=== PATIENT | female | born 1950 | race Caucasian/White ===

== ENCOUNTER 2017-05-23 18:30 | Emergency (ER) | payer MEDICARE, MEDICAID ==
[~2017-05-23] VITALS: Ht 157.5 cm; Wt 114.7 kg
[2017-05-23 18:53] VITALS: BP 149/90
[2017-05-23] MEDS ORDERED: OFLO5DRO EACHEYE (19:57)
== END 2017-05-23 20:02 | disposition home or self-care (01) ==
LOC: ER 18:31
DX: L98.9 Disorder of the skin and subcutaneous tissue, unspecified (principal); Z88.5 Allergy status to narcotic agent; Z88.1 Allergy status to other antibiotic agents
CPT/HCPCS: 99283

== ENCOUNTER 2017-05-24 16:18 | Emergency (ER) | payer MEDICARE, MEDICAID ==
[~2017-05-24] VITALS: Ht 149.9 cm; Wt 120.0 kg
[~2017-05-24 16:18] MED LIST: OFLO5DRO EACHEYE
[2017-05-24 16:28] VITALS: BP 134/75
== END 2017-05-24 16:53 | disposition home or self-care (01) ==
LOC: ER 16:19
DX: R21 Rash and other nonspecific skin eruption (principal); Z88.5 Allergy status to narcotic agent
CPT/HCPCS: 99281

== ENCOUNTER 2017-08-13 10:15 | Inpatient (IN) | payer MEDICARE, MEDICAID ==
[~2017-08-13] VITALS: Ht 157.5 cm; Wt 114.0 kg
[2017-08-13 10:56] LABS: BASOPHILS % (AUTO) 0.6 % (0-1); EOSINOPHILS # (AUTO) 0.2 X10'3 (0-0.9); HEMATOCRIT 37.1 % (35.0-45.0); HEMOGLOBIN 12.6 g/dl (12.0-16.0); LYMPHOCYTES # (AUTO) 1.1 X10'3 (1.1-4.8); LYMPHOCYTES % (AUTO) 26.5 % (21-51); MEAN CORPUSCULAR HEMOGLOBIN 29.8 PG (27.0-31.0); MEAN CORPUSCULAR VOLUME 87.8 FL (78-98); MONOCYTES # (AUTO) 0.3 X10'3 (0-0.9); NEUTROPHILS # (AUTO) 2.6 X10'3 (1.8-7.7); NEUTROPHILS % (AUTO) 60.9 % (42-75); PLATELET COUNT 180 X10'3 (140-440); RED BLOOD COUNT 4.22 X10'6 (4.20-5.60); WHITE BLOOD COUNT 4.3 X10'3 (4.5-11.0)
[2017-08-13 11:06] LABS: PARTIAL THROMBOPLASTIN TIME 25 SECONDS (22-32); PROTHROMBIN TIME 10.4 SECONDS (9.0-12.0)
[2017-08-13 11:10] LABS: ALANINE AMINOTRANSFERASE 25 U/L (12-78); ALBUMIN 3.3 G/DL (3.4-5.0); ALBUMIN/GLOBULIN RATIO 0.8 (1.1-1.5); ALKALINE PHOSPHATASE 119 IU/L (46-116); ANION GAP 7 (8-16); ASPARTATE AMINO TRANSFERASE 22 U/L (10-37); BILIRUBIN,TOTAL 0.3 MG/DL (0.1-1.0); BLOOD UREA NITROGEN 24 MG/DL (7-18); BUN/CREATININE RATIO 28.2 (6.6-38.0); CALCIUM 8.6 MG/DL (8.5-10.1); CHLORIDE 107 MMOL/L (99-107); CREATININE 0.85 MG/DL (0.40-0.90); GLUCOSE 102 MG/DL (70-104); POTASSIUM 3.9 MMOL/L (3.5-5.1); SODIUM 143 MMOL/L (135-145); TOTAL CARBON DIOXIDE 28.6 MMOL/L (24-32); TOTAL PROTEIN 7.2 G/DL (6.4-8.2); eGFR 67 ML/MIN
[2017-08-13 11:13] LABS: TROPONIN I < 0.04 NG/ML (0.0-0.05)
[2017-08-13] MEDS ORDERED: mag hydrox/Alum hydrox/simeth 30ml oral suspension PO PRN (11:55)
[2017-08-13] MEDS ORDERED: magnesium hydroxide 30ml (MOM) UD suspension PO PRN (11:55)
[2017-08-13] MEDS ORDERED: ondansetron/PF 4mg/2ml inj IV PRN (11:55)
[2017-08-13] MEDS ORDERED: acetaminophen 325mg tablet PO PRN (11:55)
[2017-08-13] MEDS: normal saline 1000ml 1,000 ML IV SCH ×2 (12:15→21:14)
[2017-08-13 12:18] LABS: CHOL/HDL RATIO 2.9 (0.00-4.99); CHOLESTEROL 159 MG/DL (0-200); HDL CHOLESTEROL 55 MG/DL (35-60); LDL CHOLESTEROL 89 MG/DL (50-100); TRIGLYCERIDES 64 MG/DL (20-135)
[2017-08-13 13:54] VITALS: BP 154/97
[2017-08-13 17:00] VITALS: BP 98/47
[2017-08-13] MEDS: heparin, porcine 5000 units/ml vial SQ SCH (19:42)
[2017-08-13] MEDS: acetaminophen 325mg tablet PO PRN (21:16)
[2017-08-13 22:00] VITALS: BP 113/57
[2017-08-13] MEDS ORDERED: ketorolac tromethamine 15mg/ml inj. IV ONE (22:35)
[2017-08-14 02:11] VITALS: BP 114/51
[2017-08-14] MEDS: acetaminophen 325mg tablet PO PRN (03:41)
[2017-08-14] MEDS: normal saline 1000ml 1,000 ML IV SCH (05:33)
[2017-08-14 05:52] LABS: BASOPHILS % (AUTO) 0.6 % (0-1); EOSINOPHILS # (AUTO) 0.2 X10'3 (0-0.9); EOSINOPHILS % (AUTO) 5.3 % (0-6); HEMOGLOBIN 10.7 g/dl (12.0-16.0); LYMPHOCYTES # (AUTO) 1.6 X10'3 (1.1-4.8); LYMPHOCYTES % (AUTO) 43.5 % (21-51); MEAN CORPUSCULAR HEMOGLOBIN 29.6 PG (27.0-31.0); MEAN CORPUSCULAR HGB CONC 33.4 % (33.0-36.5); MEAN CORPUSCULAR VOLUME 88.7 FL (78-98); MEAN PLATELET VOLUME 8.8 FL (7.4-10.4); MONOCYTES # (AUTO) 0.3 X10'3 (0-0.9); MONOCYTES % (AUTO) 8.3 % (2-12); NEUTROPHILS # (AUTO) 1.5 X10'3 (1.8-7.7); NEUTROPHILS % (AUTO) 42.3 % (42-75); PLATELET COUNT 164 X10'3 (140-440); RED BLOOD COUNT 3.61 X10'6 (4.20-5.60); WHITE BLOOD COUNT 3.6 X10'3 (4.5-11.0)
[2017-08-14 05:57] LABS: ALBUMIN 2.7 G/DL (3.4-5.0); ANION GAP 9 (8-16); BLOOD UREA NITROGEN 32 MG/DL (7-18); BUN/CREATININE RATIO 45.1 (6.6-38.0); CALCIUM 8.1 MG/DL (8.5-10.1); CHLORIDE 110 MMOL/L (99-107); CREATININE 0.71 MG/DL (0.40-0.90); GLUCOSE 94 MG/DL (70-104); POTASSIUM 3.9 MMOL/L (3.5-5.1); SODIUM 145 MMOL/L (135-145); TOTAL CARBON DIOXIDE 25.9 MMOL/L (24-32); eGFR 82 ML/MIN
[2017-08-14 06:00] VITALS: BP 129/56
[2017-08-14] MEDS: heparin, porcine 5000 units/ml vial SQ SCH (07:27)
[2017-08-14] MEDS ORDERED: aspirin 81mg tablet.DR PO SCH (08:00)
[2017-08-14] MEDS ORDERED: LORA10TA7 PO (08:30)
[2017-08-14] MEDS ORDERED: IPRA3AMP (08:30)
[2017-08-14] MEDS ORDERED: DILT120C51 PO (08:30)
[2017-08-14] MEDS ORDERED: FURO20TA4 PO (08:30)
[2017-08-14] MEDS ORDERED: BECL8.7A7 INH (08:30)
[2017-08-14] MEDS ORDERED: POTA8CAP9 PO (08:30)
[2017-08-14] MEDS ORDERED: BUSP5TAB3 PO (08:30)
[2017-08-14] MEDS ORDERED: BACL10TA2 PO (08:30)
[2017-08-14] MEDS ORDERED: LEVO100T9 PO (08:30)
[2017-08-14] MEDS ORDERED: IPRA4AER (08:30)
[2017-08-14] MEDS ORDERED: PERM60CR4 TOP (08:30)
[2017-08-14] MEDS ORDERED: PREG50CA PO (08:30)
[2017-08-14] MEDS ORDERED: MELO-102 PO (08:30)
[2017-08-14] MEDS ORDERED: SUCR1TAB PO (08:30)
[2017-08-14] MEDS ORDERED: OMEP-50 PO (08:30)
[2017-08-14] MEDS ORDERED: LORazepam 0.5 MG tablet PO PRN (08:50)
[2017-08-14 10:00] VITALS: BP 123/52
[2017-08-14] MEDS ORDERED: ASPI81TA52 PO (13:25)
== END 2017-08-14 15:10 | disposition home or self-care (01) | DRG 69 ==
LOC: ER 10:15 → ED HOLD 11:54 → ORTHO 4S 14:13
PROVIDERS: ADMIT Family Medicine; ATTEND Family Medicine
DX: G45.9 Transient cerebral ischemic attack, unspecified (principal); E03.9 Hypothyroidism, unspecified; J45.909 Unspecified asthma, uncomplicated; Z88.6 Allergy status to analgesic agent; Z88.1 Allergy status to other antibiotic agents; Z87.891 Personal history of nicotine dependence; Z90.710 Acquired absence of both cervix and uterus; Z90.49 Acquired absence of other specified parts of digestive tract
CPT/HCPCS: 36415; 70450; 70544; 70551; 71045; 80048; 80053; 80061; 82948; 84443; 84484; 85025; 85610; 85730; 87070; 92616; 93005; 93306; 93880; 94660; 94760; 97110; 97116; 97161; 97530; 99285; J1644; J1885; J7030

== ENCOUNTER 2017-10-02 14:21 | Emergency (ER) | payer MEDICARE, MEDICAID ==
[~2017-10-02] VITALS: Ht 152.4 cm; Wt 103.0 kg
[~2017-10-02 14:21] MED LIST changes: +ASPI81TA52 PO; +BACL10TA2 PO; +BECL8.7A7 INH; +BUSP5TAB3 PO; +DILT120C51 PO; +FURO20TA4 PO; +IPRA3AMP; +IPRA4AER; +LEVO100T9 PO; +LORA10TA7 PO; +MELO-102 PO; -OFLO5DRO EACHEYE; +OMEP-50 PO; +PERM60CR4 TOP; +POTA8CAP9 PO; +PREG50CA PO; +SUCR1TAB PO
[2017-10-02 15:49] VITALS: BP 126/66
[2017-10-02] MEDS ORDERED: MUPI22OI30 TOP (16:05)
== END 2017-10-02 16:13 | disposition home or self-care (01) ==
LOC: ER 14:22
DX: S00.83XA Contusion of other part of head, initial encounter (principal); Z88.5 Allergy status to narcotic agent; Z79.82 Long term (current) use of aspirin; Z79.899 Other long term (current) drug therapy; W01.0XXA Fall on same level from slipping, tripping and stumbling without subsequent striking against object, initial encounter; Y93.89 Activity, other specified; Y92.89 Other specified places as the place of occurrence of the external cause; Y99.8 Other external cause status
CPT/HCPCS: 70450; 72125; 93005; 99284

== ENCOUNTER 2018-07-20 11:05 | Emergency (ER) | payer MEDICARE, MEDICAID ==
[~2018-07-20] VITALS: Ht 154.9 cm; Wt 104.5 kg
[~2018-07-20 11:05] MED LIST changes: -IPRA3AMP; +IPRA3AMP31
[2018-07-20 11:23] VITALS: BP 109/66
== END 2018-07-20 13:06 | disposition left against medical advice (07) ==
LOC: ER 11:06
DX: R05 Cough (principal); J00 Acute nasopharyngitis [common cold]; R09.89 Other specified symptoms and signs involving the circulatory and respiratory systems; Z53.21 Procedure and treatment not carried out due to patient leaving prior to being seen by health care provider